=== PATIENT | female | born 1965 | race Caucasian/White ===

== ENCOUNTER 2021-01-07 18:21 | Inpatient (IN) ==
[2021-01-07] MEDS ORDERED: Acetaminophen 325 MG TABLET PO PRN (21:27)
[2021-01-07] MEDS ORDERED: Naloxone 0.4 MG/ML INJ IVP PRN (21:27)
[2021-01-07] MEDS ORDERED: Ondansetron 4 MG/2 ML VIAL IVP PRN (21:27)
[2021-01-07 22:34] LABS: Albumin 2.4 g/dL (3.5-5.7); Bilirubin,Total 0.9 mg/dL (0.3-1.0); Calcium 7.3 mg/dL (8.6-10.3); Globulin 2.5 g/dL (2.4-3.5); Total Protein 4.9 g/dL (6.4-8.9)
[2021-01-07 22:49] LABS: Troponin I 0.16 ng/mL (< 0.04)
[2021-01-08] MEDS ORDERED: 0.9 % Sodium Chloride 1,000 ML IVC SCH (00:15)
[2021-01-08 00:27] LABS: Potassium,Urine 29.8 mEq/L; Sodium, Urine 34.5 mEq/L
[2021-01-08 00:34] LABS: Bilirubin,Urine Small (Negative); Blood,Urine Large (Negative); Clarity,Urine Turbid (Clear); Color,Urine Brown (Yellow); Glucose,Urine (UA) Normal (Normal); Ketones,Urine Trace mg/dL (Negative); Leukocyte Esterase,Urine Negative (Negative); Nitrite,Urine Negative (Negative); Protein,Urine >=300 mg/dL (Neg-Trace); Specific Gravity,Urine 1.025 (1.010-1.025); Urobilinogen,Urine Normal (Normal)
[2021-01-08 03:05] LABS: Basophils % 0.1 %; Hematocrit 26.5 % (35.3-44.9); Immature Granulocytes % 0.6 % (0-4); Mean Corpuscular HGB Conc 30.2 g/dL (31.6-35.5); Mean Corpuscular Hemoglobin 23.4 pg (28.0-33.3); Mean Corpuscular Volume 77.5 fL (83.0-100.0); Monocytes # 0.9 K/mcL (0.0-1.3); Monocytes % 6.4 %; Neutrophils # 11.8 K/mcL (1.6-8.9); Nucleated Red Blood Cells 0.1 /100 WBC (0); Platelet Count 256 K/mcL (140-400); Red Blood Count 3.42 M/mcL (3.82-4.97); Red Cell Distribution Width 15.8 % (11.5-14.5); Segmented Neutrophils % 85.9 %; White Blood Count 13.7 K/mcL (4.3-11.1)
[2021-01-08] MEDS: Piperacillin/Tazobactam 3.375 GM in 0.9 % Sodium Chloride Mini Bag 100 ML IVPB SCH ×3 (03:40→16:58)
[2021-01-08 03:48] LABS: Albumin 2.3 g/dL (3.5-5.7); Bilirubin,Direct 0.4 mg/dL (0.0-0.2); Bilirubin,Indirect 0.4 mg/dL (0.0-1.0); Bilirubin,Total 0.8 mg/dL (0.3-1.0); Calcium 7.1 mg/dL (8.6-10.3); Chol/HDL Ratio 8.1 (0-4.9); Globulin 2.3 g/dL (2.4-3.5); Magnesium 2.2 mg/dL (1.6-2.6); Phosphorous 5.4 mg/dL (2.7-4.5); Potassium 4.9 mEq/L (3.5-5.1); Total Protein 4.6 g/dL (6.4-8.9); Troponin I 0.07 ng/mL (< 0.04)
[2021-01-08 04:02] LABS: Thyroid Stimulating Hormone 3.089 mcIU/mL (0.340-5.600)
[2021-01-08] MEDS ORDERED: Albumin 25% 25gram/100mL 25 GM/100 ML IV.SOLN IVPB ONE (08:47)
[2021-01-08] MEDS ORDERED: Albumin 25% 25gram/100mL 25 GM/100 ML IV.SOLN IVPB STA (08:58)
[2021-01-08 09:15] LABS: ABG Base Excess -8 mEq/L (-2 to 3); ABG HCO3 17 mEq/L (21-27); ABG Oxygen Saturation 94 % (95-98); ABG PCO2 29 mmHg (35-45); ABG PH 7.38 pH Units (7.32-7.45); ABG PO2 70 mmHg (85-104); ABG TCO2 18 mEq/L (20-26)
[2021-01-08] MEDS ORDERED: *HR* FentaNYL (PF) 100 MCG/2 ML VIAL IVP PRN (12:29)
[2021-01-08] MEDS ORDERED: *HR* OxyCODONE Immed Rel 5 MG TABLET PO PRN (12:33)
[2021-01-08] MEDS: OLANZapine 5 MG TAB.RAPDIS PO SCH (20:40)
[2021-01-08] MEDS ORDERED: Morphine Sulfate Oral CONC 10 MG/0.5 ML ORAL.SYG SL PRN (21:36)
[2021-01-08] MEDS ORDERED: Haloperidol Lactate 5 MG/ML VIAL IVP PRN (21:39)
[2021-01-09] MEDS: *HR* FentaNYL (PF) 100 MCG/2 ML VIAL IVP PRN ×10 (01:02→23:17)
[2021-01-09] MEDS: Piperacillin/Tazobactam 3.375 GM in 0.9 % Sodium Chloride Mini Bag 100 ML IVPB SCH (04:57)
[2021-01-09] MEDS ORDERED: *HR* FentaNYL (PF) 100 MCG/2 ML VIAL IVP PRN (12:04)
[2021-01-09] MEDS ORDERED: Atropine 1% Opth Drops 100 DROP/5 ML BOTTLE SL PRN (13:57)
[2021-01-09] MEDS: *HR* LORazepam 2 MG/ML VIAL IVP PRN (17:01)
[2021-01-09] MEDS: OLANZapine 5 MG TAB.RAPDIS PO SCH (22:10)
[2021-01-10] MEDS: *HR* FentaNYL (PF) 100 MCG/2 ML VIAL IVP PRN ×6 (02:15→12:15)
[2021-01-10 08:32] VITALS: BP 69/49; PULSE 94; TEMP 97.9; O2SAT 93
[2021-01-10] MEDS: *HR* LORazepam 2 MG/ML VIAL IVP PRN ×4 (10:54→20:25)
[2021-01-10] MEDS ORDERED: Glycopyrrolate 0.2 MG/ML VIAL IVP PRN (11:26)
[2021-01-10] MEDS ORDERED: Scopolamine Patch 1.5 MG PATCH.TD72 TD SCH (11:30)
[2021-01-10] MEDS ORDERED: *HR* FentaNYL (PF) 100 MCG/2 ML VIAL IVP PRN (12:33)
[2021-01-10] MEDS ORDERED: Saliva Stimulant 44.3ml BOTTLE PO PRN (12:33)
[2021-01-10] MEDS: FentaNYL (PF) 1,000 MCG/100 ML IV.SOLN IVC SCH ×2 (14:00→20:54)
[2021-01-10] MEDS: OLANZapine 5 MG TAB.RAPDIS PO SCH (20:07)
== END 2021-01-10 21:51 | disposition expired | DRG 871 ==
LOC: 2ANU → SUATTDRO 21:27 → 2ANU 01-08 14:11
PROVIDERS: ADMIT Student in an Organized Health Care Education/Training Program; ATTEND Student in an Organized Health Care Education/Training Program